=== PATIENT | female | born 2000 | race Caucasian/White ===

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

== ENCOUNTER → 2018-08-27 23:30 | Outpatient (CLI) | payer BC, OTHER, SELFPAY ==
[2018-08-28 12:26] LABS: Microscopic, Urine URINE MICROSCOPIC (MICROSCOPIC)
[2018-08-28 13:34] LABS: Appearance,Urine TURBID (Clear); Bacteria,Urine 4+ /lpf; Bilirubin,Urine Negative (Negative); Blood, Urine 1+ (Negative); Color,Urine RED (Yellow); Glucose,Urine (UA) TRACE (Negative); Ketones,Urine Negative (Negative); Leukocyte Esterase,Urine TRACE (Negative); Nitrate,Urine POSITIVE (Negative); Protein,Urine 2+ (Negative); Specific Gravity, Urine <= 1.005 (1.005-1.030); Squamous Epithelial Cell,Urine Occasional #/hpf (0-5)
== END ==
PROVIDERS: Visit Provider Nurse Practitioner Family
DX: R33.9 Retention of urine, unspecified (principal); R30.9 Painful micturition, unspecified
CPT/HCPCS: 81001; 87086; 87088; 87186

== ENCOUNTER → 2018-09-02 12:48 | Outpatient (CLI) | payer BC, OTHER, SELFPAY | PROVIDERS: Visit Provider Nurse Practitioner Family | DX: R30.0 Dysuria (principal) | CPT/HCPCS: 87086 ==

== ENCOUNTER → 2020-01-08 09:17 | Outpatient (POV) | payer BC, OTHER, SELFPAY | PROVIDERS: Visit Provider Dermatology | DX: Z00.00 Encounter for general adult medical examination without abnormal findings (principal) ==

== ENCOUNTER → 2020-05-13 09:49 | Outpatient (POV) | payer BC, OTHER, SELFPAY | PROVIDERS: Visit Provider Dermatology | DX: Z00.00 Encounter for general adult medical examination without abnormal findings (principal) ==

== ENCOUNTER 2020-05-25 18:21 | Emergency (ER) | payer BC, OTHER, SELFPAY ==
[2020-05-25 18:21] VITALS: BP 164/98; PULSE 82; RESP 18; TEMP 36.9; O2SAT 99; BMI 23.5
--- NOTE | 2020-05-25 19:11 | HMH.EDUTC ---
[facility] Clinical Impression: Otitis media Qualifiers: Otitis media type: unspecified Laterality: right Qualified Code(s): H66.91 - Otitis media, unspecified, right ear Disposition: Home, Self-Care Condition on Discharge: Good Instructions: Middle Ear Infection, Ear Infections (Alternative Therapy), Amoxicillin Additional Instructions: *Monitor Temp, Over the counter Motrin or Tylenol as directed/as needed Tylenol every 4 hours and Motrin every 6 hours (as long as your family doctor has told you that you can take it) for fever or pain. and straight to ER if unable to lower temp less than 101.0 after medication given *Warm salt water gargles may help to soothe the throat *Throat Lozenges *Warm fluids like tea with honey may help to soothe the throat *Sleep elevated *Humidifier/Vaporizer *Flonase 2 sprays in each nostril daily but be aware that it may take 2-3 days before you notice improvement Follow up IMMEDIATELY for new or worsening symptoms or no Noticeable improvement over the next 48-72 hours. 911 for difficulty breathing or swallowing You were tested for today for COVID19 your test result should be back in the next 24-48 hours, you may call to the [facility] to see if your test results are back in the next 48 hours [phone] [facility] hours are 9am-9pm You was given a handout with instructions for Self Quarantine and Self isolation for while you wait on test results and what to do if they are positive If you are positive the Health Dept will be contacting you also Prescriptions: Amoxicillin [Amoxicillin 875MG Tab] 875 mg PO Q12H #20 tab Transmission Status: Pending to [facility] Referrals: Sj Preciado MD [Primary Care Provider] - As needed Time of Disposition: 19:21 Medical Decision Making - Edison Inquiry Pt receiving controlled substance: No Edison was queried for this patient: No Vital Signs: 05/25/20 18:21 Temperature 98.4 F Temperature Source Oral Pulse Rate [Left Radial] 82 Respiratory Rate 18 Blood Pressure [Right Arm] 164/98 H Blood Pressure Mean [Right Arm] 120 Blood Pressure Source [Right Arm] Automatic Cuff Blood Pressure Position [Right Arm] Sitting 02 Sat by Pulse Oximetry 99 Oxygen Delivery Method Room Air Orders (Tests/Meds): ORDERS Category Date Time Status Covid-19 Nasal PCR ([facility]) Routine Lab 05/25/20 19:00 Re[place] [facility] [place] - General Stated complaint: Cough,chest tight,right earache Time Seen by Provider: 05/25/20 19:11 Mode of Arrival: Ambulatory Source of Information: Patient Limitations: No Limitations Description of Symptoms (Recalled from Triage Doc. by RN): c/o ear ache, slight cough, body aches for 4 days HEENT Symptoms (Recalled from RN notes): Yes Resp Symptoms (Recalled from RN notes): No Skin Symptoms (Recalled from RN notes): No MS Symptoms (Recalled from RN notes): No Functional Status (Recalled from RN notes): wnl - History of Present Illness Provider Complaint: Patient states that she has been having pain in her right ear for about 4 days with body aches, chills and slight cough States that this evening she wasnt feeling any better so she came in to get checked - Related Data Home Medications Medication Instructions Recorded Confirmed lisinopriL [Lisinopril 10mg Tab] 10 mg PO DAILY 07/10/18 06/13/19 norgestimate-ethinyl estradioL 1 each PO DAILY 12/18/18 06/13/19 [Tri-Linyah Tablet] Previous Rx's Medication Instructions Recorded Phenazopyridine HCl [Pyridium 200 pow PO TID #6 tab 06/13/19 200mg Tablet] Sulfamethoxazole/Trimethoprim 1 each PO BID 10 Days #20 tab 06/13/19 [Bactrim DS tablet] Amoxicillin [Amoxicillin 875MG 875 mg PO Q12H #20 tab 05/25/20 Tab] Allergies Allergy/AdvReac Type Severity Reaction Status Date / Time No Known Allergies Allergy Verified 06/13/19 13:22 - Worker's Comp Is this a Worker's Comp case?: No [facility] History - Hepatitis A Screen Drug use history?: No
[2020-05-25 19:23] VITALS: BP 164/98; PULSE 82; RESP 18; TEMP 36.9; O2SAT 99
--- NOTE | 2020-05-25 21:50 | PC.NURSE ---
+ COVID results reported
--- NOTE | 2020-05-26 09:34 | PC.NURSE ---
voice mail left for patient to return call
--- NOTE | 2020-05-26 10:45 | PC.NURSE ---
patient notified of positive covid results
== END 2020-05-25 19:30 | disposition home or self-care (01) ==
PROVIDERS: Emergency Provider Nurse Practitioner; PCP Internal Medicine Adolescent Medicine
DX: U07.1 COVID-19 (principal); H66.91 Otitis media, unspecified, right ear; I10 Essential (primary) hypertension; Z79.899 Other long term (current) drug therapy
CPT/HCPCS: 99202; G0463; U0003

== ENCOUNTER → 2020-06-17 15:24 | Outpatient (POV) | payer BC, OTHER, SELFPAY | PROVIDERS: Visit Provider Dermatology | DX: Z00.00 Encounter for general adult medical examination without abnormal findings (principal) ==

== ENCOUNTER → 2020-08-07 14:58 | Outpatient (CLI) | payer BC, OTHER, SELFPAY ==
[2020-08-07 15:57] LABS: Chloride 103 mmol/L (98-107); Potassium 4.4 mmoL/L (3.5-5.1); Sodium 139 mmol/L (136-145)
[2020-08-07 16:00] LABS: Alanine Aminotransferase 20 U/L (12-78); Albumin Level 4.5 g/dl (3.5-5.0); Albumin/Globulin Ratio 1.5 (1.1-1.8); Alkaline Phosphatase 70 U/L (38-126); Anion Gap 11.4 mEq/L (5-15); Aspartate Amino Transferase 33 U/L (14-36); Bilirubin,Total 0.5 mg/dl (0.2-1.3); Blood Urea Nitrogen 13 mg/dl (7-17); Carbon Dioxide 29 mmol/L (22.0-30.0); Estimated Glomerular Filt Rate 106 ml/min (>60); GFR (African American) 128 ML/MIN (>60); Total Protein,Serum 7.5 g/dl (6.3-8.2)
[2020-08-07 16:01] LABS: Calcium 9.9 mg/dl (8.4-10.2); Glucose 111 mg/dl (74-100)
== END ==
PROVIDERS: Visit Provider Nurse Practitioner Family
DX: Z00.00 Encounter for general adult medical examination without abnormal findings (principal); I10 Essential (primary) hypertension
CPT/HCPCS: 36415; 80053; 82043

== ENCOUNTER → 2020-08-29 10:06 | Outpatient (CLI) | payer BC, OTHER, SELFPAY ==
[2020-08-29 11:54] LABS: Collection Time,Urine 24 hours; Total Volume,Urine 1575 mL (600-1600)
[2020-08-29 12:01] LABS: Total Protein 24 Hour,Urine 299 mg/24 hr (40-90)
[2020-08-29 12:03] LABS: Creatinine 24 Hour,Urine 851 mg/24hr (630-2500)
[2020-08-29 12:04] LABS: Creatinine,Urine Random 54 mg/dL (Not Estab.)
== END ==
PROVIDERS: Visit Provider Nurse Practitioner Family
DX: I10 Essential (primary) hypertension (principal); R80.1 Persistent proteinuria, unspecified
CPT/HCPCS: 82570; 84155

== ENCOUNTER → 2020-09-01 08:18 | Outpatient (CLI) | payer BC, OTHER, SELFPAY ==
--- NOTE | 2020-09-01 | CA_ITS ---
APPROVED REPORT Bioinformatics Technician: Clari Auguste RVT Study Quality: Good Indications: HTN Risk Factors Hypertension Renal Artery Doppler Origin (R) 148.8/ cm/sec Proximal (R) 186.4/ cm/sec Mid (R) 180.6/ cm/sec Distal (R) 157.5/ cm/sec Renal Aorta Ratio (R) 1.36 Segmental A. (R) 47.9/13.6 cm/sec RI: 0.71 Segmental A. Sup (R) 28.9/11.8 cm/sec Segmental A. Mid (R) 47.9/13.6 cm/sec Segmental A. Inf (R) 28.9/12.7 cm/sec Origin (L) 124.2/ cm/sec Proximal (L) 125.7/ cm/sec Mid (L) 122.8/ cm/sec Distal (L) 186.4/ cm/sec Renal Aorta Ratio (L) 1.36 Segmental A. (L) 48.9/28.4 cm/sec RI: 0.41 Segmental A. Sup (L) 31.3/13.7 cm/sec Segmental A. Mid (L) 48.9/28.4 cm/sec Segmental A. Inf (L) 40.1/15.7 cm/sec Renal Measurements Kidney Size (R) 11.2x6.6 cm Cortical Thickness (R) 1.7 cm Kidney Size (L) 11.7x7.5 cm Cortical Thickness (L) 1.6 cm Findings Study suggests less than 60% stenosis of the right renal artery. Study suggests no evidence of stenosis of the left renal artery. Conclusion Study suggests less than 60% stenosis of the right renal artery. Study suggests no evidence of stenosis of the left renal artery. Electronically signed by : Giovanni Ascencio MD 09/01/2020 18:32:14
== END ==
PROVIDERS: PCP Internal Medicine Adolescent Medicine; Visit Provider Nurse Practitioner Family
DX: I10 Essential (primary) hypertension (principal)
CPT/HCPCS: 93976

== ENCOUNTER → 2020-09-04 08:50 | Outpatient (CLI) | payer BC, OTHER, SELFPAY ==
--- NOTE | 2020-09-04 | CA_ITS ---
APPROVED REPORT EXAM: Comprehensive 2D, Doppler, and color-flow Echocardiogram Cab Worker: Luisana Murray, RCS, RVS Ht: 5 ft 7 in Wt: 156lbs BSA: 1.82 BP: 128/76 mmHg Indications: S/p COVID-19, HTN 2D Dimensions IVSd 0.66 cm LVEF (Visual) 79.80 % PWd 0.88 cm LA Volume 28.50 mL LVDd 4.85 cm LA Volume Index 15.70 mL/m2 (M/F) 16-34 LVDs 2.50 cm LVOT 1.80 cm (M/F) 1.5-2.5 M-Mode Dimensions LA Diam 2.71 cm (1.9-4.0) LVDd 4.24 cm (3.5-5.7) Ao Diam 2.73 cm (2.0-3.7) LVDs 2.56 cm (3.5-5.7) EF (Teich) 70.50% EPSs 0.09 cm FS 39.60% EDV (Teich) 80.40 mL TAPSE 2.38 (<1.7) ESV (Teich) 23.70 mL LV Diastology E Decel Time 140.00 (160-240 msec) E/A Ratio 1.90 MED E' 11.70 (< 7 cm/sec) MED A' 7.00 cm/s E'/MED E' Ratio 8.54 (>14) LAT E' 14.10 (<10 cm/sec) LAT A' 7.80 cm/s E/LAT E' Ratio 7.09 (>14) Pulm Vein s 63.00 cm/sec Aortic Valve LVOT Max 115.00 (70-110 cm/s) LVOT VTI 22.55 cm AoV Peak Giles. 116.00 (50-130 cm/s) AO Peak GR. 5.40 mmHg AO Mean GR. 3.30 (<5 mmHg) AO VTI 23.72 (18-25 cm) SURINDER (VTI) 2.42 (2.5-4.5 cm2) Mitral Valve MV A Velocity 52.00 (40-130 cm/s) E/A Ratio 1.90 MV Decel. Time 140.00 (160-240 ms) Pulmonary Valve PV Peak Velocity 98.00 (50-150 cm/s) OK End VMAX 166.00 cm/s Tricuspid Valve TR P. Velocity 187.00 cm/s RAP Estimate 10.00 mmHg RVSP 24.00 mmHg Left Ventricle Left atrium is normal size, left ventricle is normal size, there is no concentric left ventricular hypertrophy, visually estimated ejection fraction 55% with no regional wall motion abnormality. Diastolic parameters are within normal range. Right Ventricle Right atrium and right ventricle are normal size and contractility. Atria Intra-atrial septum is intact, there is no flow across the interatrial septum. Agitated saline contrast reveals 25 intracardiac shunt. Aortic Valve Aortic valve is grossly normal, there is no aortic stenosis or aortic insufficiency. Mitral Valve Mitral valve grossly normal, there is trace mitral regurgitation. Tricuspid Valve Tricuspid valve grossly normal, there is trace tricuspid regurgitation, tricuspid regurgitation jet velocity is inadequate for calculation of the right ventricular systolic pressure. Pulmonic Valve Pulmonic valve is poorly visualized. Great Vessels Aortic root is normal size. Inferior vena cava is normal size with normal inspiratory collapse. Pericardium No significant pericardial effusion noted. Conclusion 1. Normal left ventricular size, preserved left ventricular systolic function, visually estimated ejection fraction 55% with no regional wall motion abnormality, diastolic parameters are within normal range. 2. Trace mitral and tricuspid regurgitation. 3. Agitated saline contrast reveals fails to identify intracardiac shunt. 4. No significant pericardial effusion noted, inferior vena cava is normal size with normal inspiratory collapse. Electronically signed by : Danie Gaines, 09/04/2020 13:24:51
== END ==
PROVIDERS: PCP Internal Medicine Adolescent Medicine; Visit Provider Nurse Practitioner Family
DX: I10 Essential (primary) hypertension (principal)
CPT/HCPCS: 93306

== ENCOUNTER → 2020-11-11 09:37 | Outpatient (POV) | payer BC, OTHER, SELFPAY | PROVIDERS: Visit Provider Dermatology | DX: Z00.00 Encounter for general adult medical examination without abnormal findings (principal) ==

== ENCOUNTER → 2020-12-16 09:36 | Outpatient (POV) | payer BC, OTHER, SELFPAY ==
[2020-12-16 10:08] LABS: Urine Pregnancy, HCG Qual. Negative (Negative)
[2020-12-16 10:56] LABS: Alanine Aminotransferase 18 U/L (12-78); Albumin Level 4.1 g/dl (3.5-5.0); Albumin/Globulin Ratio 1.4 (1.1-1.8); Alkaline Phosphatase 55 U/L (38-126); Anion Gap 10.6 mEq/L (5-15); Aspartate Amino Transferase 30 U/L (14-36); Bilirubin,Total 0.5 mg/dl (0.2-1.3); Blood Urea Nitrogen 15 mg/dl (7-17); Calcium 9.2 mg/dl (8.4-10.2); Carbon Dioxide 30 mmol/L (22.0-30.0); Chloride 103 mmol/L (98-107); Chol/HDL Ratio 2.8 (1-3.5); Cholesterol 170 mg/dl (140-200); Estimated Glomerular Filt Rate 78 ml/min (>60); GFR (African American) 95 ML/MIN (>60); Globulin 2.9 g/dL (1.3-3.2); Glucose 86 mg/dl (74-100); HDL Cholesterol 60 mg/dl (40-60); Potassium 4.6 mmoL/L (3.5-5.1); Sodium 139 mmol/L (136-145); Triglycerides 68 mg/dl (30-150); VLDL Cholesterol 14 mg/dL (0-40)
[2020-12-16 11:06] LABS: Direct LDL Cholesterol 93.07 mg/dL (100-129)
== END ==
PROVIDERS: Visit Provider Dermatology
DX: L70.0 Acne vulgaris (principal); Z79.899 Other long term (current) drug therapy
CPT/HCPCS: 36415; 80053; 80061; 81025

== ENCOUNTER → 2021-01-01 15:22 | Outpatient (CLI) | payer BC, OTHER, SELFPAY | PROVIDERS: Visit Provider Internal Medicine Nephrology | DX: I10 Essential (primary) hypertension (principal) | CPT/HCPCS: 36415; 82533 ==

== ENCOUNTER → 2021-02-10 08:33 | Outpatient (POV) | payer BC, OTHER, SELFPAY | PROVIDERS: Visit Provider Dermatology | DX: Z00.00 Encounter for general adult medical examination without abnormal findings (principal) ==

== ENCOUNTER → 2021-02-12 15:58 | Outpatient (CLI) | payer BC, OTHER, SELFPAY ==
[2021-02-12 16:56] LABS: Creatinine,Urine Random 78 mg/dL (Not Estab.)
[2021-02-12 18:24] LABS: Chloride 102 mmol/L (98-107); Sodium 141 mmol/L (136-145)
[2021-02-12 18:25] LABS: Potassium 3.9 mmoL/L (3.5-5.1)
[2021-02-12 18:27] LABS: Anion Gap 13.9 mEq/L (5-15); Blood Urea Nitrogen 15 mg/dl (7-17); Carbon Dioxide 29 mmol/L (22.0-30.0); Estimated Glomerular Filt Rate 90 ml/min (>60); GFR (African American) 109 ML/MIN (>60)
[2021-02-12 18:28] LABS: Calcium 9.5 mg/dl (8.4-10.2); Glucose 90 mg/dl (74-100); Phosphorous 3.9 mg/dl (2.5-4.5)
[2021-02-14 15:28] LABS: Anti-Centromere B Antibodies <0.2 AI (0.0-0.9); Anti-DNA (DS) Ab Qn 17 IU/mL (0-9); Anti-Jo-1 <0.2 AI (0.0-0.9); Antichromatin Antibodies <0.2 AI (0.0-0.9); Antiscleroderma-70 Antibodies <0.2 AI (0.0-0.9); RNP Antibodies 0.3 AI (0.0-0.9); Sjogren's Anti-SS-A <0.2 AI (0.0-0.9); Sjogren's Anti-SS-B <0.2 AI (0.0-0.9)
[2021-02-19 16:12] LABS: Renin Activity, Plasma 1.569 ng/mL/hr (0.167-5.380)
[2021-05-13 04:12] LABS: Anti-Centromere B Abs Charge YES; Anti-DNA (DS) Ab Charge YES; Anti-Jo-1 Charge YES; Antichromatin Abs Charge YES; Antinuclear Antibodies (ANA) POSITIVE; Antiscleroderma-70 Abs Charge YES; RNP Antibodies Charge YES; Sjogren's Anti-SS-A Ab Charge YES; Sjogren's Anti-SS-B Ab Charge YES; Smith Antibodies Charge YES
== END ==
PROVIDERS: Visit Provider Internal Medicine Nephrology
DX: I10 Essential (primary) hypertension (principal)
CPT/HCPCS: 36415; 80069; 82088; 82570; 84155; 84244; 86038; 86225; 86235

== ENCOUNTER → 2021-03-19 12:48 | Outpatient (CLI) | payer BC, OTHER, SELFPAY | PROVIDERS: PCP Internal Medicine Adolescent Medicine; Visit Provider Nurse Practitioner | DX: Z20.822 Contact with and (suspected) exposure to COVID-19 (principal) | CPT/HCPCS: C9803; U0003; U0005 ==

== ENCOUNTER → 2021-11-20 14:24 | Outpatient (CLI) | payer BC, OTHER, SELFPAY ==
[2021-11-20 15:03] LABS: Basophils % 0.4 % (0.1-2.0); Eosinophils % 0.2 % (0.1-12.0); Hematocrit 40.1 % (37.0-47.0); Hemoglobin 13.2 g/dL (12.2-16.2); Lymphocytes # 0.7 K/mm3 (0.7-4.5); Lymphocytes % 20.8 % (10-50); Mean Corpuscular HGB Conc 32.9 g/dL (31.8-35.4); Mean Corpuscular Hemoglobin 29.4 pg (27.0-31.2); Mean Corpuscular Volume 89.3 fl (81-99); Mean Platelet Volume 9.4 fl (7.4-10.4); Monocytes # 0.2 K/mm3 (0.1-1.0); Monocytes % 5.8 % (1.7-9.3); Neutrophils # 2.6 K/mm3 (1.8-7.8); Neutrophils % 72.8 % (37.0-80.0); Platelet Count 166 K/mm3 (142-424); Red Blood Count 4.49 M/mm3 (4.20-5.40); Red Cell Distribution Width 13.6 % (11.5-17.5); White Blood Count 3.5 K/mm3 (4.8-10.8)
[2021-11-20 15:12] LABS: Creatinine,Urine Random 305 mg/dL (Not Estab.)
[2021-11-20 15:24] LABS: Alanine Aminotransferase 22 U/L (12-78); Albumin Level 3.5 g/dl (3.5-5.0); Albumin/Globulin Ratio 1.3 (1.1-1.8); Alkaline Phosphatase 41 U/L (38-126); Aspartate Amino Transferase 28 U/L (14-36); Blood Urea Nitrogen 9 mg/dl (7-17); Carbon Dioxide 27 mmol/L (22.0-30.0); Chloride 101 mmol/L (98-107); Estimated Glomerular Filt Rate 124 ml/min (>60); GFR (African American) 150 ML/MIN (>60); Globulin 2.8 g/dL (1.3-3.2); Glucose 75 mg/dl (74-100); Sodium 134 mmol/L (136-145); Total Protein,Serum 6.3 g/dl (6.3-8.2)
[2021-11-20 15:31] LABS: Bilirubin,Total < 0.1 mg/dl (0.2-1.3); Microalbumin/Creatinine Ratio 83.7
[2021-11-22 09:09] LABS: HIV Screen 4th Generation wRfx Non Reactive (Non Reactive); Hepatitis B Surface Antigen Negative (Negative); Hepatitis C Antibody 0.1 s/co ratio (0.0-0.9)
[2021-11-22 10:08] LABS: Rapid Plasma Reagin Ab Titer Non Reactive (NonRea<1:1)
== END ==
PROVIDERS: PCP Nurse Practitioner Family; Visit Provider Obstetrics & Gynecology
DX: Z34.90 Encounter for supervision of normal pregnancy, unspecified, unspecified trimester (principal)
CPT/HCPCS: 36415; 80053; 82043; 82570; 84702; 85025; 86592; 86703; 86762; 86850; 87086; 87340; 87380; G0432

== ENCOUNTER → 2021-12-31 14:50 | Outpatient (CLI) | payer BC, OTHER, SELFPAY ==
[2021-12-31 14:55] LABS: Microscopic, Urine URINE MICROSCOPIC (MICROSCOPIC)
[2021-12-31 15:17] LABS: Basophils % 0.8 % (0.1-2.0); Eosinophils % 0.3 % (0.1-12.0); Hematocrit 33.5 % (37.0-47.0); Hemoglobin 11.4 g/dL (12.2-16.2); Lymphocytes # 0.8 K/mm3 (0.7-4.5); Lymphocytes % 22.5 % (10-50); Mean Corpuscular HGB Conc 34.1 g/dL (31.8-35.4); Mean Corpuscular Hemoglobin 30.7 pg (27.0-31.2); Mean Platelet Volume 9.6 fl (7.4-10.4); Monocytes # 0.2 K/mm3 (0.1-1.0); Monocytes % 6.6 % (1.7-9.3); Neutrophils # 2.6 K/mm3 (1.8-7.8); Neutrophils % 69.8 % (37.0-80.0); Platelet Count 166 K/mm3 (142-424); Red Blood Count 3.73 M/mm3 (4.20-5.40); Red Cell Distribution Width 14.1 % (11.5-17.5); White Blood Count 3.7 K/mm3 (4.8-10.8)
[2021-12-31 15:26] LABS: Albumin Level 3.3 g/dl (3.5-5.0); Anion Gap 7.8 mEq/L (5-15); Blood Urea Nitrogen 9 mg/dl (7-17); Calcium 8.8 mg/dl (8.4-10.2); Carbon Dioxide 28 mmol/L (22.0-30.0); Chloride 103 mmol/L (98-107); Estimated Glomerular Filt Rate 124 ml/min (>60); GFR (African American) 150 ML/MIN (>60); Glucose 69 mg/dl (74-100); Phosphorous 5.5 mg/dl (2.5-4.5); Potassium 3.8 mmoL/L (3.5-5.1); Sodium 135 mmol/L (136-145)
[2021-12-31 17:28] LABS: Appearance,Urine CLEAR (Clear); Bilirubin,Urine Negative (Negative); Blood, Urine Negative (Negative); Color,Urine YELLOW (Yellow); Glucose,Urine (UA) Negative (Negative); Ketones,Urine Negative (Negative); Leukocyte Esterase,Urine Negative (Negative); Nitrate,Urine Negative (Negative); Protein,Urine 1+ (Negative); Specific Gravity, Urine >= 1.030 (1.005-1.030); Urobilinogen,Urine 0.2 EU/dl (0.2)
[2021-12-31 17:36] LABS: Creatinine,Urine Random 266 mg/dL (Not Estab.)
[2021-12-31 17:42] LABS: Squamous Epithelial Cell,Urine Occasional #/hpf (0-5); WBC,Urine Occasional #/hpf (0-3)
== END ==
PROVIDERS: PCP Nurse Practitioner Family; Visit Provider Internal Medicine Nephrology
DX: I10 Essential (primary) hypertension (principal); R80.9 Proteinuria, unspecified
CPT/HCPCS: 36415; 80069; 81001; 82043; 82570; 84155; 85025

== ENCOUNTER → 2022-03-15 09:13 | Outpatient (CLI) | payer BC, OTHER, SELFPAY ==
[2022-03-15 09:32] LABS: Basophils % 0.2 % (0.1-2.0); Eosinophils # 0.1 K/mm3 (0.0-0.4); Hematocrit 38.7 % (37.0-47.0); Hemoglobin 12.9 g/dL (12.2-16.2); Lymphocytes # 0.7 K/mm3 (0.7-4.5); Lymphocytes % 11.2 % (10-50); Mean Corpuscular HGB Conc 33.3 g/dL (31.8-35.4); Mean Corpuscular Volume 90.2 fl (81-99); Mean Platelet Volume 9.3 fl (7.4-10.4); Monocytes # 0.3 K/mm3 (0.1-1.0); Monocytes % 3.9 % (1.7-9.3); Neutrophils # 5.5 K/mm3 (1.8-7.8); Neutrophils % 83.7 % (37.0-80.0); Platelet Count 207 K/mm3 (142-424); Red Blood Count 4.29 M/mm3 (4.20-5.40); White Blood Count 6.6 K/mm3 (4.8-10.8)
[2022-03-15 09:47] LABS: Glucose,Fasting 82 mg/dl (74-100)
[2022-03-15 10:59] LABS: Glucose 1 Hour 142 mg/dL (74-100)
== END ==
PROVIDERS: PCP Internal Medicine Adolescent Medicine; Visit Provider Nurse Practitioner Obstetrics & Gynecology
DX: Z34.90 Encounter for supervision of normal pregnancy, unspecified, unspecified trimester (principal)
CPT/HCPCS: 36415; 82951; 85025

== ENCOUNTER → 2022-03-23 07:54 | Outpatient (CLI) | payer BC, OTHER, SELFPAY ==
[2022-03-23 08:22] LABS: Glucose,Fasting 90 mg/dl (74-100)
[2022-03-23 10:13] LABS: Glucose 1 Hour 191 mg/dL (74-100)
[2022-03-23 11:12] LABS: Glucose 2 Hour 149 mg/dL (74-100)
[2022-03-23 12:08] LABS: Glucose 3 Hour 113 mg/dL (74-100)
== END ==
PROVIDERS: PCP Internal Medicine Adolescent Medicine; Visit Provider Nurse Practitioner Obstetrics & Gynecology
DX: Z34.90 Encounter for supervision of normal pregnancy, unspecified, unspecified trimester (principal); Z3A.25 25 weeks gestation of pregnancy
CPT/HCPCS: 36415; 82951

== ENCOUNTER 2022-04-12 09:12 | Outpatient (CLI) | payer BC, OTHER, SELFPAY ==
[2022-04-12 09:45] VITALS: BP 130/86; PULSE 97; RESP 20; TEMP 36.7; O2SAT 100; BMI 27.1
== END 2022-04-12 10:35 | disposition home or self-care (01) ==
LOC: OBOUT 09:13 → OB 09:14
PROVIDERS: PCP Internal Medicine Adolescent Medicine; Visit Provider Nurse Practitioner Obstetrics & Gynecology
DX: O26.893 Other specified pregnancy related conditions, third trimester (principal); Z3A.31 31 weeks gestation of pregnancy; O13.3 Gestational [pregnancy-induced] hypertension without significant proteinuria, third trimester
CPT/HCPCS: 59025

== ENCOUNTER → 2022-04-27 09:08 | Outpatient (CLI) | payer OTHER, SELFPAY ==
[2022-04-27 09:41] LABS: Collection Time,Urine 24 hours; Total Volume,Urine 1600 mL (600-1600)
[2022-04-27 09:44] LABS: Patient Height,Urine 67 inches; Patient Weight,Urine 167 lbs
[2022-04-27 10:12] LABS: Creatinine 24 Hour,Urine 1152 mg/24hr (630-2500)
[2022-04-27 10:13] LABS: Creatinine Clearance Urine 105.9 mL/min (25-115); Creatinine,Urine Random 72 mg/dL (Not Estab.)
[2022-04-27 10:21] LABS: Total Protein 24 Hour,Urine 288 mg/24 hr (40-90)
== END ==
LOC: LAB 09:09
PROVIDERS: PCP Internal Medicine Adolescent Medicine; Visit Provider Nurse Practitioner Obstetrics & Gynecology
DX: Z34.90 Encounter for supervision of normal pregnancy, unspecified, unspecified trimester (principal)
CPT/HCPCS: 36415; 82575; 84155

== ENCOUNTER → 2022-05-14 16:18 | Outpatient (CLI) | payer BC, OTHER, SELFPAY | PROVIDERS: Visit Provider Obstetrics & Gynecology | DX: Z34.90 Encounter for supervision of normal pregnancy, unspecified, unspecified trimester (principal); Z3A.33 33 weeks gestation of pregnancy | CPT/HCPCS: 86403 ==

== ENCOUNTER 2022-05-18 13:47 | Inpatient (IN) | payer BC, OTHER, SELFPAY ==
[2022-05-18] VITALS (16 sets, daily range): BP systolic 114–144; BP diastolic 64–104; PULSE 75–105; RESP 17–19; TEMP 36.7–37.1; O2SAT 96–99; BMI 27.6; BMI 27.5
[2022-05-18 10:23] LABS: Basophils % 0.3 % (0.1-2.0); Eosinophils % 0.8 % (0.1-12.0); Hematocrit 32.2 % (37.0-47.0); Hemoglobin 11.5 g/dL (12.2-16.2); Lymphocytes # 0.7 K/mm3 (0.7-4.5); Lymphocytes % 12.4 % (10-50); Mean Corpuscular HGB Conc 35.6 g/dL (31.8-35.4); Mean Corpuscular Hemoglobin 29.7 pg (27.0-31.2); Mean Corpuscular Volume 83.4 fl (81-99); Mean Platelet Volume 9.9 fl (7.4-10.4); Monocytes # 0.3 K/mm3 (0.1-1.0); Monocytes % 5.5 % (1.7-9.3); Neutrophils # 4.3 K/mm3 (1.8-7.8); Neutrophils % 81.1 % (37.0-80.0); Platelet Count 178 K/mm3 (142-424); Red Blood Count 3.87 M/mm3 (4.20-5.40); Red Cell Distribution Width 14.1 % (11.5-17.5); White Blood Count 5.2 K/mm3 (4.8-10.8)
[2022-05-18 10:53] LABS: Activated Partial Thrombo Time 26.1 seconds (22.8-30.6); Alanine Aminotransferase 16 U/L (12-78); Anion Gap 9.4 mEq/L (5-15); Aspartate Amino Transferase 30 U/L (14-36); Blood Urea Nitrogen 12 mg/dl (7-17); Calcium 8.4 mg/dl (8.4-10.2); Carbon Dioxide 23 mmol/L (22.0-30.0); Chloride 105 mmol/L (98-107); Creatinine Clearance Estimated 134 mL/min (50-200); Estimated Glomerular Filt Rate 89 ml/min (>60); Fibrinogen 425 mg/dL (229.9-363.5); GFR (African American) 108 ML/MIN (>60); Glucose 76 mg/dl (74-100); INR 0.86 (0.9-1.1); Potassium 3.4 mmoL/L (3.5-5.1); Prothrombin Time 9.4 seconds (10.1-12.5); Sodium 134 mmol/L (136-145)
[2022-05-18 10:59] LABS: D-Dimer 1.17 ug/mL (0.0-0.5)
--- NOTE | 2022-05-18 13:55 | P.CONPHA_ITS ---
Pharmacy Intervention Comments: MEDICATION RECONCILIATION COMPLETED ON PATIENT USING EXTERNAL FILL HISTORY FROM PHARMACY AND LIST FROM YIELD ANALYST OFFICE. -LEA MERIDAD
--- NOTE | 2022-05-18 13:55 | HMH.PHAINT1 ---
Pharmacy Intervention Comments: MEDICATION RECONCILIATION COMPLETED ON PATIENT USING EXTERNAL FILL HISTORY FROM PHARMACY AND LIST FROM PHARMACY LABORATORY TECHNICIAN OFFICE. -LEA MERIDAD
--- NOTE | 2022-05-18 14:52 | EXP.HP ---
History of Present Illness *Admission Date: 05/18/22 *Reason for visit:: Chronic hypertension, gestational hypertension, lupus, renal stenosis, preg *History of present illness: She is a 21-year-old 1 now para 0 at 36 and 5 weeks gestational age. She was seen in my office and her blood pressure has risen over the last week. She takes nifedipine 60 mg XL twice daily and her blood pressure today was in the 150s over 90s. She was admitted to labor and delivery where her blood pressures remained elevated. We have given her another 10 mg of nifedipine. [facility] Disclaimer: The information contained in this section may have been updated after the patient was seen, as this information can be updated by other users. Medical History Chronic hypertension Lupus Maternal hypertension during Family History No significant family history Social History Smoking Status: Never smoker alcohol intake: never substance use type: denies use current occupational status: employed Travel in the last 8 weeks: None housing: house Review of Systems Review of Systems Review of systems:: pertinent systems reviewed and negative unless documented below Meds Home Medications and Allergies Home Medications Medication Instructions Recorded Confirmed Type aspirin 81 mg tablet,delayed 81 mg PO DAILY [facility] 12/18/21 05/18/22 History release prenat.vits,zulema,pbd-mgun-jwobo 1 tab PO DAILY Supplement 03/01/22 05/18/22 History ferrous sulfate 325 mg (65 mg 325 mg PO DAILY Supplement 05/18/22 05/18/22 History iron) tablet,delayed release nifedipine 60 mg tablet,extended 60 mg PO BID Hypertension 05/18/22 05/18/22 History release 24 hr New Prescriptions to Start Prescriptions: Allergies Allergy/AdvReac Type Severity Reaction Status Date / Time No Known Allergies Allergy Verified 05/18/22 08:30 Exam Data for Last 24 hours Vital signs and Labs for Last 24 Hours: Temp Pulse Resp BP Pulse Ox 98.2 F 75 17 132/78 96 05/18/22 09:53 05/18/22 09:53 05/18/22 09:53 05/18/22 12:28 05/18/22 09:53 Laboratory Results - last 24 hr 05/18/22 10:15: WBC 5.2, RBC 3.87 L, Hgb 11.5 L, Hct 32.2 L, MCV 83.4, MCH 29.7, MCHC 35.6 H, RDW 14.1, Plt Count 178, MPV 9.9, Neut % (Auto) 81.1 H, Lymph % (Auto) 12.4, [place] % (Auto) 5.5, Eos % (Auto) 0.8, Baso % (Auto) 0.3, Neut # (Auto) 4.3, Lymph # (Auto) 0.7, [place] # (Auto) 0.3, Eos # (Auto) 0.0, Baso # (Auto) 0.0 05/18/22 10:15: PT 9.4 L, INR 0.86 L, APTT 26.1, Fibrinogen 425 H 05/18/22 10:15: D-Dimer 1.17 H, Sodium 134 L, Potassium 3.4 L, Chloride 105, Carbon Dioxide 23, Anion Gap 9.4, BUN 12, Creatinine 0.80, Estimated Creat Clear 134, Estimated GFR 89, Est GFR ( Amer) 108, Glucose 76, Uric Acid 6.0, Calcium 8.4, AST 30, ALT 16 I & O for Last 24 hours: Intake & Output 05/16/22 05/17/22 05/18/22 05/19/22 11:59 11:59 11:59 11:59 Weight 171 lb 6 oz Constitutional Constitutional: no acute distress *Routine HEENT Exam Head: Present normocephalic Eye: Present EOMI and PERRL ENT: Present mucous membranes moist *Routine Neck Exam Neck: Present supple; Absent lymphadenopathy *Routine Respiratory Exam Respiratory: Present CTA bilaterally *Routine Cardiovascular Exam Cardiovascular: Present RRR *Routine Abdominal Exam Abdominal: Present soft and normoactive bowel sounds; Absent tenderness *Routine Rectal Exam Rectal:: deferred *Routine Genitalia Exam Genitalia:: deferred *Routine Extremities Exam Extremities: Absent cyanosis, clubbing or edema *Routine Skin Exam Skin: Present warm; Absent rash *Routine Neurological Exam Neurological: Present alert and oriented X3 Assessment and Plan *Assessment and plan (1) Maternal hypertension during : Status: Acute Category:
[2022-05-18 14:55] LABS: Coronavirus 19, PCR Not Detected (NotDetected); Influenza A, PCR Not Detected (NotDetected); Influenza B, PCR Not Detected (NotDetected)
[2022-05-18 21:10] LABS: Microscopic, Urine URINE MICROSCOPIC (MICROSCOPIC)
[2022-05-18 21:12] LABS: Appearance,Urine CLEAR (Clear); Bilirubin,Urine Negative (Negative); Blood, Urine Negative (Negative); Color,Urine YELLOW (Yellow); Glucose,Urine (UA) Negative (Negative); Ketones,Urine Negative (Negative); Leukocyte Esterase,Urine 1+ (Negative); Nitrate,Urine Negative (Negative); Protein,Urine Negative (Negative); Specific Gravity, Urine <= 1.005 (1.005-1.030); Urobilinogen,Urine 0.2 EU/dl (0.2)
[2022-05-18 21:25] LABS: Amphetamine/Metha Screen,Urine Negative ng/ml (<1000); Barbiturates Screen,Urine Negative ng/ml (<200)
[2022-05-18 21:26] LABS: Benzodiazepines Screen,Urine Negative ng/ml (<200)
[2022-05-18 21:27] LABS: Cannabinoid Screen,Urine Negative ng/ml (<50); Cocaine Screen,Urine Negative ng/ml (<300)
[2022-05-18 21:28] LABS: Methadone Screen,Urine Negative ng/ml (<300)
[2022-05-18 21:30] LABS: Opiate Screen,Urine Negative ng/ml (<300); Phencyclidine Screen,Urine Negative ng/ml (<25)
[2022-05-18 21:36] LABS: Bacteria,Urine 1+ /lpf
[2022-05-19] VITALS (17 sets, daily range): BP systolic 110–148; BP diastolic 61–89; PULSE 72–90; RESP 12–18; TEMP 36.4–36.6; O2SAT 97–100
--- NOTE | 2022-05-19 08:21 | EXP.LABOR.NO ---
Labor Note Subjective: Date: 05/19/22 Time: 08:21 regular contraction Objective: NST:: Reactive Contractions:: every 2-3 minutes Cervical Dilation:: 3 Effacement:: 25% Station: -2 Membranes: intact Fetus: Monitoring?: Yes monitoring type:: External Assessment: Labor progressing?: Yes Cephalopelvic disproportion?: No All Active Problems (Updated 05/18/22 @ 09:34 by Robbin Rushing MD) Maternal hypertension during (Acute) Breast engorgement, obstetric (Acute) Mastitis during (Acute) Chronic hypertension during , antepartum (Acute) Lupus (Acute) Renal artery stenosis (Acute) (Acute) Plan: Anesthesia for epidural?: No Continue to labor down?: Yes Plan for ?: No Continue to monitor?: Yes Start pushing?: No Comment:: She did not want me to rupture her membranes just yet. We will ruptured membranes in about an hour.
--- NOTE | 2022-05-19 09:52 | EXP.LABOR.NO ---
Labor Note Subjective: Date: 05/19/22 Time: 09:52 regular contraction Objective: NST:: Reactive Contractions:: every 2-3 minutes Cervical Dilation:: 3 Effacement:: 25% Station: -2 Membranes: artificially ruptured Comment:: I ruptured her membranes and there was clear fluid. Fetus: Monitoring?: Yes monitoring type:: Internal and External Comment:: I inserted an IUPC. Assessment: Labor progressing?: No Cephalopelvic disproportion?: No All Active Problems (Updated 05/18/22 @ 09:34 by Robbin Rushing MD) Maternal hypertension during (Acute) Breast engorgement, obstetric (Acute) Mastitis during (Acute) Chronic hypertension during , antepartum (Acute) Lupus (Acute) Renal artery stenosis (Acute) (Acute) Plan: Anesthesia for epidural?: No Continue to labor down?: Yes Plan for ?: No Continue to monitor?: Yes Start pushing?: No Comment:: I have ruptured membranes and there is clear fluid. I inserted an IUPC. She is having contractions every couple of minutes. Nonstress test is reactive. We will see how she does over the next few hours.
--- NOTE | 2022-05-19 13:46 | EXP.LABOR.NO ---
Labor Note Subjective: Date: 05/19/22 Time: 13:46 regular contraction Objective: NST:: Reactive Contractions:: every 2-3 minutes Cervical Dilation:: 4 Effacement:: 50% Station: -2 Membranes: artificially ruptured Fetus: Monitoring?: Yes monitoring type:: External Comment:: Her IUPC fell out but we are picking up the contractions better. Assessment: Labor progressing?: Yes Cephalopelvic disproportion?: No All Active Problems (Updated 05/18/22 @ 09:34 by Robbin Rushing MD) Maternal hypertension during (Acute) Breast engorgement, obstetric (Acute) Mastitis during (Acute) Chronic hypertension during , antepartum (Acute) Lupus (Acute) Renal artery stenosis (Acute) (Acute) Plan: Anesthesia for epidural?: No Continue to labor down?: Yes Plan for ?: No Continue to monitor?: Yes Start pushing?: No Comment:: We will continue to monitor her and see how she does. She has reached 4 cm. She is having regular contractions. We will check her again in a couple hours.
--- NOTE | 2022-05-19 16:14 | EXP.LABOR.NO ---
Labor Note Subjective: Date: 05/19/22 Time: 16:14 regular contraction Objective: NST:: Reactive Contractions:: every 2-3 minutes Cervical Dilation:: 4-5 Effacement:: 50% Station: -1 Membranes: artificially ruptured Fetus: Monitoring?: Yes monitoring type:: External Assessment: Labor progressing?: Yes Cephalopelvic disproportion?: No All Active Problems (Updated 05/18/22 @ 09:34 by Robbin Rushing MD) Maternal hypertension during (Acute) Breast engorgement, obstetric (Acute) Mastitis during (Acute) Chronic hypertension during , antepartum (Acute) Lupus (Acute) Renal artery stenosis (Acute) (Acute) Plan: Anesthesia for epidural?: No Continue to labor down?: Yes Plan for ?: No Continue to monitor?: No Start pushing?: No Comment:: She continues to do well. The heart rate tracing is normal. She is 4 to 5 cm the baby's head is come down significantly. It is now Station -1. We will plan a vaginal delivery. We will continue with oxytocin.
--- NOTE | 2022-05-19 19:08 | EXP.LABOR.NO ---
Labor Note Subjective: Date: 05/19/22 Time: 19:08 regular contraction Objective: NST:: Reactive Contractions:: every 2-3 minutes Cervical Dilation:: 4-5 Effacement:: 75% Station: -1 Membranes: artificially ruptured Fetus: Monitoring?: Yes monitoring type:: External Assessment: Labor progressing?: No Cephalopelvic disproportion?: Yes All Active Problems (Updated 05/18/22 @ 09:34 by Robbin Rushing MD) Maternal hypertension during (Acute) Breast engorgement, obstetric (Acute) Mastitis during (Acute) Chronic hypertension during , antepartum (Acute) Lupus (Acute) Renal artery stenosis (Acute) (Acute) Plan: Anesthesia for epidural?: No Continue to labor down?: No Plan for ?: Yes Continue to monitor?: Yes Start pushing?: No Comment:: She really has not progressed much since I examined her at 4:00. She still 4 to 5 cm. There is some molding of the head. Despite the fact that she been having regular contractions all day she really has not progressed much over the last few hours. We will go ahead with a primary lower segment transverse section. We will do it under spinal anesthesia. We discussed the risks of surgery that includes bleeding, infection, injuries to the bowel and bladder. We discussed the rare risk of DVT and the need for DVT prophylaxis. We discussed the T AP block. All questions were answered and consent signed.
--- NOTE | 2022-05-19 19:11 | PC.NURSE ---
SX TEAM PAGED FOR NON-EMERGENT AT THIS TIME HARISH HITCHCOCK RN AND LESLIE PALMER CALLED BACK BY 1915 TO VERIFY MESSAGE RECEIVED
[2022-05-19 20:26] LABS: Cord Blood PH 7.46 (7.35-7.45)
--- NOTE | 2022-05-19 20:46 | EXP.OP.NOTE ---
Date of procedure: 05/19/22 Pre-op Diagnosis:: , -induced hypertension, chronic hypertension, renal stenosis, lupus, pelvic disproportion Post-op Diagnosis:: , -induced hypertension, chronic hypertension, renal stenosis, lupus, pelvic disproportion, uterine atony Procedure performed:: Primary lower segment transverse section, B-hooker suture Surgeon:: Robbin Rushing MD Director Adult(s):: Dr. Chapman CUSTOMS COMPLIANCE SPECIALIST:: Rob De Guzman Anesthesia: spinal Estimated blood loss (mL): 800 Clinical Note:: She is a 21-year-old 1 now para 0 at 36 and 6 weeks gestational age. She has had chronic hypertension throughout her as result of lupus and mild renal stenosis. She had a spike in her blood pressure over the last couple of days and as result of that we brought her in for observation. Her blood pressures remain elevated and since she was close to term we elected to deliver her. She was started on IV oxytocin and really failed to progress beyond 4 to 5 cm. There was significant caput and after having discussed the risks and benefits we elected perform a primary lower segment transverse section for pelvic disproportion. Operative findings:: She delivered a liveborn male child at 8:12 PM in the evening of May 19, 2022. The baby had Apgars of 7 at 1 minute and 8 at 5 minutes. The pH was 7.46. Ovaries and tubes appeared normal. The uterus was somewhat boggy despite the fact that she had adequate IV oxytocin. As result of that we elected to perform a B-hooker suture. Operative note:: She was taken to the operating room where spinal anesthesia was found be adequate. She was prepped and draped in normal sterile fashion in the supine position. A Wei catheter was in the bladder. A Pfannenstiel skin incision was made with knife then carried through to the underlying layer of fascia with cautery. The fascia was opened in the midline with cautery and extended laterally using Berumen scissors. Sarah clamps were applied to the superior aspect of the fascial incision which was tented up and the underlying rectus muscles dissected off using cautery. The Sarah clamps were then applied to the inferior aspect of the fascial incision which in a similar fashion was tented up and the underlying rectus muscles dissected off using cautery. The rectus muscles were then in the midline, the peritoneum identified, and entered bluntly. An Abdiaziz retractor was then inserted into the abdominal cavity. Transverse incision was made through the uterine muscle above the bladder flap to the amnion. This incision was then extended superiorly and inferiorly using the fingers as traction. The amnion was entered sharply with knife. There was clear amniotic fluid. The infant's head was then delivered atraumatically. This was followed by the anterior shoulder and the rest of the 's body atraumatically. The oropharynx and nasopharynx were bulb suctioned. The was vigorous so we allowed the cord to continue to pulsate for approximately 1 minute. The cord was then doubly clamped and cut. The infant was then handed off to Dr. Preciado who assigned Apgars of 7 at 1 minute and 8 at 5 minutes. We then obtained cord blood. We obtained cord pH and it was 7.46. Using gentle traction on the cord and fundal massage I was able to easily deliver the placenta intact. It had a normal three-vessel cord. The uterus was then cleared of clots and debris . The uterine incision was then closed using running 0 Vicryl suture in a locked fashion. A second layer of the same suture was used to imbricate the first layer. The bladder peritoneum was then closed using running 2-0 Vicryl suture in a locked fashion. . The gutters and cul-de-sac were then cleared of clots and debris . Once again hemostasis was assured. The uterus continued to be quite boggy so elected to place a B-hooker suture. Using #1 Vicryl on a protect po
--- NOTE | 2022-05-19 20:50 | P.PN_ITS ---
[facility] Disclaimer: The information contained in this section may have been updated after the patient was seen, as this information can be updated by other users. Medical History Chronic hypertension Lupus Maternal hypertension during Family History No significant family history Social History Smoking Status: Never smoker alcohol intake: never substance use type: denies use current occupational status: employed Travel in the last 8 weeks: None housing: house [facility] Anesthesia Checklist Patient Identification Patient Identification: Verbal (Name & ) Structural Data Admitted From: Home Planned Operative Procedure/s: c/section Consent for Planned Operative Procedure(s) Verified: Yes Airway Assessment C-Spine Mobility Assessed: Yes TMJ Mobility Assessed: Yes Dentition: Good Dentition Neurological Assessment Level of Consciousness: Awake, Alert and Appropriate Anesthesia Plan Anesthesia Risk discussed: Yes Anesthesia Plan: Verified ASA Class: II Anesthesia Type: Spinal
--- NOTE | 2022-05-19 20:51 | EXP.ANES.I ---
[facility] Anesthesia Record Part I Anesthesia Record I Intake, IV Amount: 1,500 Estimated blood loss (mL): 750 Urine output (mL): 300 Blood Pressure: 146/63 SaO2: 100 Pulse Rate: 88 Respiratory Rate: 12 Temperature: 97.5 F Patient is:: Awake and Stable Stable to PACU at:: 20:45
--- NOTE | 2022-05-19 21:38 | SUR.PHASEI ---
2049-pt noted to be shivering. 25 mg demerol given ivp. VSS. 2124- clear,yellow urine emptied from f/c. Detailed report called to radha MOREIRA. Pt transported via bed to OB per Qi MOREIRA & Olga. Pt left in care of Radha MOREIRA. Family @ .
[2022-05-20 02:56] VITALS: BP 133/85; PULSE 77; RESP 17; TEMP 36.9
[2022-05-20 04:14] VITALS: BP 136/92; PULSE 81; RESP 17; TEMP 36.9; O2SAT 99
[2022-05-20 08:00] VITALS: BP 135/93; PULSE 81; RESP 16; TEMP 36.8; O2SAT 98
[2022-05-20 09:20] LABS: Hematocrit 30.8 % (37.0-47.0); Hemoglobin 10.5 g/dL (12.2-16.2)
--- NOTE | 2022-05-20 09:31 | EXP.ANES.II ---
[facility] Anesthesia Record Part II Anesthesia Record Part II Discharge Time: 21:25 Destination: Obstetric PACU nurse assessment reviewed?: Yes Patient Condition:: Good Anesthesia Complications:: None Swallowing reflex intact?: Yes Cyanosis?: No Blood Pressure: 122/70 Pulse Rate: 72 Temperature: 97.5 F Mental Status: Alert & Oriented Pain level:: 0 Nausea and/or vomitting:: None Intake, IV Amount: 0
[2022-05-20 09:32] VITALS: BP 122/70; PULSE 72; TEMP 36.4
--- NOTE | 2022-05-20 10:51 | EXP.DC.SUM ---
General Admission date:: 05/18/22 Discharge date: 05/20/22 HPI HPI HPI: She is a 21-year-old 1 now para 0 at 36 and 5 weeks gestational age. She was seen in my office and her blood pressure has risen over the last week. She takes nifedipine 60 mg XL twice daily and her blood pressure today was in the 150s over 90s. She has recently been diagnosed with lupus and has renal stenosis. She has significant breast engorgement on the right breast and was seen at [facility] where a biopsy was done that showed no abnormalities. She had peau d'orange on the right breast. She was admitted to labor and delivery where her blood pressures remained elevated. We have given her another 10 mg of nifedipine. She is admitted for induction of labor. Hospital Course Hospital Course Hospital Course: She was admitted overnight and the following morning started on IV oxytocin. We had started her on labetalol 100 mg every 8 hours as well for her blood pressure. This seemed to settle her blood pressures. She had her membranes ruptured in the morning of May 19, 2022 and really failed to progress beyond 4 to 5 cm. Baby's head was still high there was significant Molding and no further dilation of the cervix. As result of that pelvic disproportion was diagnosed and she was taken for a primary lower segment transverse section. She delivered a liveborn male child at 8:26 PM in the evening of May 19, 2022. Baby had Apgars of 7 at 1 minute and 8 at 5 minutes. Overnight the baby had some grunting and retracting and breathing difficulties. As result of that the baby is being transferred to [facility]. Coco would like to be transferred there as well for compassionate care so she can be near her baby. Her hemoglobin is 10.5. At the time of her the uterus was quite boggy despite the fact that she was receiving IV oxytocin so we did a B-hooker suture. Her bleeding is stable. She would like to breast-feed. She is discharged with her mother to be admitted to [facility] for compassionate care. Her condition on discharge is stable and improved. Exam Data for Last 24 hours Vital signs and Labs for Last 24 Hours: Temp Pulse Resp BP Pulse Ox 97.5 F L 72 16 122/70 98 05/20/22 09:32 05/20/22 09:32 05/20/22 08:00 05/20/22 09:32 05/20/22 08:00 Laboratory Results - last 24 hr 05/19/22 20:24: Cord ABG pH 7.46 H 05/20/22 09:08: Hgb 10.5 L, Hct 30.8 L I & O for Last 24 hours: Intake & Output 05/17/22 05/18/22 05/19/22 05/20/22 11:59 11:59 11:59 11:59 Intake Total 1500 / 1500 Balance 1500 / 1500 Weight 171 lb 6 oz 171 lb 5.986 oz Microbiology Reports for the Last 24 Hours: Microbiology 05/18/22 21:01 Urine,Clean Catch Urine Culture - Preliminary Constitutional Constitutional: no acute distress *Routine HEENT Exam Head: Present normocephalic *Routine Respiratory Exam Respiratory: Present normal respiratory effort; Absent accessory muscle use Results Data Completed and Pending Labs on day of discharge: Labs from last 24 hours 05/20/22 05/19/22 09:08 20:24 Hgb 10.5 L Hct 30.8 L Cord ABG pH 7.46 H Preliminary micro results at discharge 05/18/22 21:01 Urine Culture - Preliminary Urine,Clean Catch DS: Diagnosis Discharge Diagnosis (1) Maternal hypertension during : Status: Acute (2) Breast engorgement, obstetric: Status: Acute (3) Mastitis during : Status: Acute (4) Chronic hypertension during , antepartum: Status: Acute (5) Lupus: Status: Acute (6) Renal artery stenosis: Status: Acute (7) delivery delivered: Status: Acute Meds Home Medications and Allergies Home Medications Medication Instructions Recorded Confirmed Type aspirin 81 mg tablet,delayed 81 mg PO DAILY [facility] 12/18/21 05/18/22 History release
== END 2022-05-20 11:44 | disposition short-term general hospital (02) | DRG 786 ==
LOC: OBOUT 13:48 → OB 13:48
PROVIDERS: Admitting Provider Nurse Practitioner Obstetrics & Gynecology; PCP Internal Medicine Adolescent Medicine; Visit Provider Nurse Practitioner Obstetrics & Gynecology
PROC: 10D00Z1 Extraction of Products of Conception, Low, Open Approach (ICD-10-PCS; CPT 59514; principal; 2022-05-19 20:00)
DX: O10.92 Unspecified pre-existing hypertension complicating childbirth (principal); O60.14X0 Preterm labor third trimester with preterm delivery third trimester, not applicable or unspecified; Z3A.36 36 weeks gestation of pregnancy; Z37.0 Single live birth; I70.1 Atherosclerosis of renal artery; M32.9 Systemic lupus erythematosus, unspecified; O92.79 Other disorders of lactation; O91.213 Nonpurulent mastitis associated with pregnancy, third trimester; O75.89 Other specified complications of labor and delivery; O65.4 Obstructed labor due to fetopelvic disproportion, unspecified
CPT/HCPCS: 59514; 36415; 59025; 80048; 80305; 81001; 82800; 84450; 84460; 84550; 85014; 85018; 85025; 85378; 85384; 85610; 85730; 86850; 87086; C1758; C9803; J0290; J0595; J2405; U0003; U0005

== ENCOUNTER → 2023-02-15 10:21 | Outpatient (POV) | payer BC, OTHER, SELFPAY | PROVIDERS: Visit Provider Dermatology | DX: Z00.00 Encounter for general adult medical examination without abnormal findings (principal) ==

== ENCOUNTER 2024-09-05 08:40 | Outpatient (CLI) | payer OTHER, SELFPAY ==
[2024-09-05 09:18] LABS: Basophils % 0.2 % (0.1-2.0); Eosinophils % 0.7 % (0.1-12.0); Hematocrit 43.2 % (37.0-47.0); Hemoglobin 14.5 g/dL (12.2-16.2); Lymphocytes # 0.9 K/mm3 (0.7-4.5); Mean Corpuscular HGB Conc 33.6 g/dL (31.8-35.4); Mean Corpuscular Hemoglobin 29.2 pg (27.0-31.2); Mean Corpuscular Volume 86.9 fl (81-99); Monocytes # 0.3 K/mm3 (0.1-1.0); Monocytes % 7.3 % (1.7-9.3); Neutrophils # 2.9 K/mm3 (1.8-7.8); Neutrophils % 70.6 % (37.0-80.0); Nucleated Red Blood Cells # 0 10^3/uL; Nucleated Red Blood Cells % 0 %; Platelet Count 184 K/mm3 (142-424); Red Blood Count 4.97 M/mm3 (4.20-5.40); Red Cell Distribution Width 13.5 % (11.5-17.5); Red Cell Distribution Width-SD 42.6 fL; White Blood Count 4.1 K/mm3 (4.8-10.8)
[2024-09-05 09:37] LABS: Alanine Aminotransferase 20 U/L (12-78); Alkaline Phosphatase 55 U/L (38-126); Aspartate Amino Transferase 32 U/L (14-36); Bilirubin,Direct 0.1 mg/dl (0.0-0.4); Bilirubin,Indirect 0.3 mg/dL (0.0-0.9); Bilirubin,Total 0.4 mg/dl (0.2-1.3); Bilirubin,Unconjugated 0.3 mg/dL (0.0-1.1); Chol/HDL Ratio 3.1 (1-3.5); Cholesterol 178 mg/dl (140-200); HDL Cholesterol 58 mg/dl (40-60); Total Protein,Serum 7.3 g/dl (6.3-8.2); Triglycerides 63 mg/dl (30-150); VLDL Cholesterol 13 mg/dL (0-40)
[2024-09-05 09:48] LABS: Direct LDL Cholesterol 93.28 mg/dL (100-129)
[2024-09-05 09:56] LABS: HCG,Quantitative < 2 mIU/ml (0-5.42)
== END 2024-09-05 23:59 | disposition home or self-care (01) ==
LOC: LAB 08:42
PROVIDERS: PCP Internal Medicine Adolescent Medicine; Visit Provider Dermatology
DX: L70.0 Acne vulgaris (principal)
CPT/HCPCS: 36415; 80061; 80076; 84702; 85025